=== PATIENT | male | born 1990 | race Caucasian/White ===

== ENCOUNTER 2017-09-11 16:01 | Emergency (ER) | payer BC ==
[2017-09-11 17:00] VITALS: BP 141/75
--- NOTE | 2017-09-11 17:28 | UC ---
Throat Pain/Nasal Chao HPI - HPI Summary HPI Summary: 7 days sinus congestion, PND, ear fullness. No fevers, + fatigue mild cough - non productive. + sick contacts. No cp, sob. Little relief with mucinex no mylagia. pressure in sinuses max L<R Pain improves with shower + PND Pt's medications reviewed this visit - History of Current Complaint Chief Complaint: UCGeneralIllness Stated Complaint: SINUSES Time Seen by Provider: 09/11/17 17:26 Hx Obtained From: Patient Onset/Duration: Gradual Onset, Lasting Days Severity: Moderate Cough: Nonproductive Associated Signs & Symptoms: Positive: Sinus Discomfort, Nasal Discharge - Allergies/Home Medications Allergies/Adverse Reactions: Allergies Allergy/AdvReac Type Severity Reaction Status Date / Time No Known Allergies Allergy Verified 09/11/17 16:57 PMH/Surg Hx/FS Hx/Imm Hx Previously Healthy: Yes - Surgical History Surgical History: Yes Surgery Procedure, Year, and Place: Tonsils - Family History Known Family History: Positive: None - Social History Occupation: Employed Full-time Alcohol Use: Occasionally Substance Use Type: None Smoking Status (MU): Never Smoked Tobacco - Immunization History Most Recent Influenza Vaccination: no 2016 Review of Systems Constitutional: Fatigue Eyes: Negative ENT: Sore Throat, Ear Ache, Nasal Discharge, Sinus Congestion Respiratory: Cough Cardiovascular: Negative All Other Systems Reviewed And Are Negative: Yes Physical Exam Triage Information Reviewed: Yes Appearance: Well-Appearing, No Pain Distress, Well-Nourished Vital Signs: Initial Vital Signs Temp 98.6 F 09/11/17 16:57 Pulse 66 09/11/17 16:57 Resp 18 09/11/17 16:57 BP 141/75 09/11/17 16:57 Pulse Ox 98 09/11/17 16:57 Vital Signs Reviewed: Yes Eye Exam: Normal Eyes: Positive: Conjunctiva Clear ENT: Positive: Hearing grossly normal, Pharyngeal erythema, Nasal congestion, TMs normal - fluid left TM no erythema,no exudate + PND no exudate uvula midline , Sinus tenderness Dental Exam: Normal Neck exam: Normal Neck: Positive: 1 Respiratory Exam: Normal Respiratory: Positive: Chest non-tender, Lungs clear, Normal breath sounds, No respiratory distress, No accessory muscle use Cardiovascular Exam: Normal Cardiovascular: Positive: RRR, No Murmur, Pulses Normal Abdominal Exam: Normal Abdomen Description: Positive: Nontender, No Organomegaly, Soft Bowel Sounds: Positive: Present Musculoskeletal Exam: Normal Neurological Exam: Normal Neurological: Positive: Alert Psychological Exam: Normal Psychological: Positive: Normal Response To Family Skin Exam: Normal Throat Pain/Nasal Course/Dx - Course Course Of Treatment: Pt presents with progressive sinus congestion, PND and cough. Pt with inflammed, boggy turbinates with fluid left ear. Rx abx, flonase. motrin/apap. hydrate. secretion precaution - Differential Dx/Diagnosis Provider Diagnoses: sinusitis Discharge - Discharge Plan Condition: Stable Disposition: HOME Prescriptions: Amoxicillin/Clavulanate TAB* [Augmentin TAB 875*] 875 mg PO BID #20 tab Fluticasone NASAL SPRAY 50MCG* [Flonase NASAL SPRAY 50MCG*] 2 spray BOTH NARES DAILY #1 btl Patient Education Materials: Rhinosinusitis (ED) Referrals: No Primary Care Phys,NOPCP [Primary Care Provider] - Additional Instructions: - STay well hydrated. Drink plenty of non-alcoholic, non-caffinated beverages - take antibiotics 2 times a day as prescribed - After you have been on antibiotics for 2 days - change your toothbrush and your pillowcase. These infections are spread by secrtions - do NOT share eating or drinking utensils - clean items you share with other people such as iphone, computer mouse, TV remote, etc - Use nasal spray as instructed - Alternate ibuprofen (Advil, motrin) 600mg and tylenol eveyry 3 hours for pain or fever. - okay to take over the counter decongestant medications - Call your doctor to schedule a follow-up appointment. Call your doctor or return with questions or concerns
== END 2017-09-11 17:48 | disposition home or self-care (01) ==
LOC: UCCORT 16:01
DX: J32.9 Chronic sinusitis, unspecified (principal); R53.83 Other fatigue; J02.9 Acute pharyngitis, unspecified; H92.09 Otalgia, unspecified ear
CPT/HCPCS: 99202; G0463